=== PATIENT | female | born 1955 | race Caucasian/White ===

== ENCOUNTER 2018-03-30 09:09 | Day surgery (SDC) | payer BC, OTHER ==
[2018-03-30] MEDS ORDERED: NS 500 ML IV 500 ML IV ONE (09:49)
[2018-03-30] MEDS ORDERED: TETRACAINE 0.5% OPHTH 1 DOSE AFFEYE ONE ×5 (09:50→12:46)
[2018-03-30] MEDS ORDERED: VIGAMOX 0.5% OPHTH 1 DOSE AFFEYE ONE ×5 (09:55→12:57)
[2018-03-30] MEDS ORDERED: PROLENSA OPHTH 1 DOSE AFFEYE ONE (10:06)
[2018-03-30] MEDS ORDERED: ALPHAGAN-P OPHTH 1 DOSE AFFEYE ONE (10:07)
[2018-03-30] MEDS ORDERED: CYCLOGYL 1% OPHTH 1 DOSE OP ONE ×3 (10:08→10:10)
[2018-03-30] MEDS ORDERED: MYDRIACIL OPHTH 1 DOSE AFFEYE ONE ×3 (10:08→10:10)
[2018-03-30] MEDS ORDERED: AK-DILATE 2.5% OPHTH 1 DOSE OP ONE ×3 (10:08→10:10)
[2018-03-30] MEDS ORDERED: VERSED IVP ONE ×2 (12:30→12:32)
[2018-03-30] MEDS ORDERED: BETADINE OPHTH SOLN 5% EACHEYE ONE (12:38)
[2018-03-30] MEDS ORDERED: DUOVISC IO ONE (12:46)
[2018-03-30] MEDS ORDERED: BSS OPHTH (PLAIN) 500 ML with VANCOMYCIN HCL 500 MG VIAL 25 MG, ADRENALINE CHL INJ 1 MG IR ONE ×3 (12:46)
[2018-03-30] MEDS ORDERED: ADRENALINE CHL INJ IJ ONE (12:46)
[2018-03-30] MEDS ORDERED: XYLOCAINE-MPF 1% IJ ONE (12:46)
[2018-03-30] MEDS ORDERED: VERSED ONE (12:53)
[2018-03-30 14:50] VITALS: BP 104/81
== END 2018-03-30 13:20 | disposition home or self-care (01) ==
LOC: SURG1 09:09
PROVIDERS: ATTEND Ophthalmology
PROC: 08RK3JZ Replacement of Left Lens with Synthetic Substitute, Percutaneous Approach (ICD-10-PCS; principal; 2018-03-30 12:15)
PROC: 08DK3ZZ Extraction of Left Lens, Percutaneous Approach (ICD-10-PCS; principal; 2018-03-30 12:15)
DX: H25.12 Age-related nuclear cataract, left eye (principal); H25.012 Cortical age-related cataract, left eye; H25.042 Posterior subcapsular polar age-related cataract, left eye; H52.222 Regular astigmatism, left eye
CPT/HCPCS: A4217; J0170; J2250; J3370